=== PATIENT | female | born 1970 | race Caucasian/White ===

== ENCOUNTER → 2017-03-26 | Outpatient (CLI) | payer OTHER | LOC: FIMAGING 09:38 | PROVIDERS: ATTEND Family Medicine | DX: Z12.31 Encounter for screening mammogram for malignant neoplasm of breast (principal) | CPT/HCPCS: G0202 ==

== ENCOUNTER → 2018-04-08 | Outpatient (CLI) | payer OTHER | LOC: FIMAGING 09:54 | PROVIDERS: ATTEND Family Medicine | DX: Z12.31 Encounter for screening mammogram for malignant neoplasm of breast (principal) ==

== ENCOUNTER 2019-02-18 12:42 | Inpatient (IN) | payer OTHER ==
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
[2019-02-18] MEDS ORDERED: fentaNYL 100 MCG/2 ML INJ IVP ONE (13:03)
[2019-02-18] MEDS ORDERED: ONDANSETRON 4 MG/2 ML VIAL IVP ONE (13:03)
[2019-02-18] MEDS ORDERED: NS 1,000 ML IV ONE (13:04)
[2019-02-18 14:32] LABS: INR 1.06 (0.83-1.16); PROTIME(PATIENT) 13.4 SEC (12.0-15.0)
[2019-02-18] MEDS ORDERED: PROMETHAZINE HCL 25 MG/ML INJ IVP ONE (14:48)
[2019-02-18 15:27] LABS: PLATELET COUNT 201 10^3/uL (150-400)
[2019-02-18] MEDS ORDERED: oxyCODONE IR 5 MG TAB PO PRN (16:19)
[2019-02-18] MEDS ORDERED: ONDANSETRON 4 MG/2 ML VIAL IVP PRN (16:19)
[2019-02-18] MEDS ORDERED: HYDROmorphONE/DILAUDID 1 MG/ML INJ IVP PRN (16:19)
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
[2019-02-18] MEDS: ACETAMINOPHEN 325 MG TAB PO PRN (18:25)
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
--- NOTE | 2019-02-18 19:40 | CPEKG ---
Test Reason : OPEN Blood Pressure : / mmHG Vent. Rate : 072 BPM Atrial Rate : 073 BPM P-R Int : 204 ms QRS Dur : 088 ms QT Int : 454 ms P-R-T Axes : 073 085 054 degrees QTc Int : 497 ms Sinus rhythm Borderline prolonged NC interval Borderline prolonged QT interval Confirmed by Theresa Hyatt ([id number]) on 02/18/2019 7:40:16 PM Referred By: THERESA HYATT Confirmed By:Theresa Hyatt
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
[2019-02-18] MEDS: IBUPROFEN 600 MG TAB PO SCH (23:31)
[2019-02-18] MEDS: BACITRACIN ZINC 0.5 OZ OINTTUBE TP SCH (23:31)
[2019-02-19] MEDS: BACITRACIN ZINC 0.5 OZ OINTTUBE TP SCH ×2 (01:24→08:58)
[2019-02-19] MEDS: IBUPROFEN 600 MG TAB PO SCH ×3 (01:32→08:59)
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
[2019-02-19] MEDS ORDERED: REGADENOSON 0.4 MG/5 ML SYR IVP ONE (08:52)
[2019-02-19] MEDS ORDERED: CETIRIZINE 10 MG TAB PO SCH (09:00)
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
--- NOTE | 2019-02-19 10:57 | PDCARST ---
CAR Stress Test Results Type of Stress Test: Lexiscan stress test Indication: syncope Description of Procedure: After informed consent was obtained, pt was established to ECG, blood pressure, HR and oximetry monitoring. STRESS EKG AND HEMODYNAMIC DATA. Resting heart rate: 63 BPM. Resting ECG: SR. Resting blood pressure: 104/62 mmHg. O2 saturation at rest: 93%. Peak heart rate: 89 BPM. Peak blood pressure: 98/56 mmHg. Arrhythmias: none. Symptoms: The patient experienced no typical symptoms of angina during stress or recovery. Stress/Infusion ECG: No change in rhythm with no significant ST/T wave changes. Stress/infusion O2 saturation: 97% Impression: Uneventful Lexiscan infusion. Conclusion: Await nuclear images.
[2019-02-19 11:34] VITALS: BP 111/77
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
[2019-02-19] MEDS: ACETAMINOPHEN 325 MG TAB PO PRN (15:20)
--- NOTE | 2019-02-19 18:37 | ECHO ---
[email or web address] [address] [address] Main: [phone] Echocardiography Examination Transthoracic Name: POPPY NIEVES MR#: [id number] Study Date: 02/19/2019 Study Time: 08:02 AM Date of : 1970 Age: 48 year(s) Height: 167.6 cm (66 in.) Weight: 61.24 kg (135 lb.) BSA: 1.69 m2 Gender: Female Examination: Echo Contrast: Image Quality: Adequate Rhythm: Heart Rate: BP: 108 mmHg/63 mmHg Indication: ?syncope Procedure Staff Referring Physician: Wallcovering Texturer: Naomi Sams [facility] Reading Physician: Dalton Vega MD Requesting Provider: Indication: ?syncope Measurements Chambers AV/MV Label Value Normal Value Label Value Normal Value LVOT Vmax 0.91 m/s (0.7m/s - 1.1m/s) AV PGmax 7 mmHg LVOTd 2 cm (1.8cm - 2cm) AV PGmean 5 mmHg LVOT VTI 21.1 cm (18cm - 22cm) AV Vmax 1.31 m/s LVDd, 2D 4.5 cm (3.9cm - 5.3cm) ELISABETH (Vmax) 2.2 cm2 LVDs, 2D 2.7 cm (2.1cm - 4cm) ELISABETH (VTI) 2.2 cm2 IVSd, 2D 0.9 cm (0.6cm - 1.1cm) MV E Vmax 0.76 m/s LVPWd, 2D 0.8 cm MV A Vmax 0.45 m/s LVEF, BP 57 % (55% - 70%) MV E/A 1.69 LVEF, 2D 70 % (54% - 74%) MV E/E' lateral 6.7 LVOT PGmean 2 mmHg MV E/E' septal 8.1 (0.5 - 1.7) LVOT Vmean 0.71 m/s MV DT 243 ms RVDd, 2D 1.9 cm (1.9cm - 3.8cm) MV E' septal 0.09 m/s LA Volume, BP 22 ml (22ml - 52ml) MV PHT 0.07 s LADs, 2D 2.8 cm (2.7cm - 3.8cm) MVA PHT 3 cm2 LAESV index, BP 13 ml/m2 MV E' lateral 0.11 m/s RA Area 10.4 cm2 MV E/E' mean 7.6 Additional Vessels MV PHT 73 ms Label Value Normal Value MV E' mean 0.1 m/s AoAsc 2.8 cm TV/PV AoRoot, 2D 2.7 cm (1.4cm - 2.6cm) Label Value Normal Value Patient: POPPY NIEVES Study Date: 02/19/2019 Page 1 of 3 08:02 AM IVC 2.2 cm (1.2cm - 2.3cm) RA Pressure 5 mmHg PV PGmax 4 mmHg PV Vmax, Caliper 0.99 m/s (0.6m/s - 0.9m/s) Conclusions Left Ventricle: Left ventricle is normal in size. EF range is estimated at 55 % - 60 %. Left ventricular diastolic function parameters are normal. No LV hypertrophy. Right Ventricle: Right ventricular systolic function is normal. Left Atrium: The left atrium is normal in size. Right Atrium: The right atrium is normal in size. Pericardium: No pericardial effusion. Findings Left Ventricle: Left ventricle is normal in size. Normal global systolic left ventricular function. The ejection fraction, measured by Simpsons method, is 57 %. EF range is estimated at 55 % - 60 %. Left ventricle wall thickness is normal. There are no regional wall motion abnormalities. Left ventricular diastolic function parameters are normal. No LV hypertrophy. Right Ventricle: Normal size right ventricle. Right ventricular systolic function is normal. Left Atrium: The left atrium is normal in size. Right Atrium: The right atrium is normal in size. Mitral Valve: Mitral valve appears structurally normal. Mild mitral regurgitation. No mitral valve stenosis. Aortic Valve: Aortic leaflets are structurally normal. Trivial aortic regurgitation is present. There is no aortic stenosis. Tricuspid Valve: Tricuspid valve leaflets are structurally normal. Trivial tricuspid regurgitation. No tricuspid valve stenosis. Pulmonary artery pressure cannot be assessed due to inadequate TR signal. Pulmonic Valve: Pulmonic leaflets are structurally normal. No significant pulmonic valve regurgitation is evident. Aorta: The aortic root size in 2D measures 2.7 cm. The ascending aorta measures 2.8 cm. Aorta Measurements AoRoot, 2D is 2.7 cm. IVC: The inferior vena cava is normal in size. Pericardium: No pericardial effusion. No pleural effusion present. Patient: POPPY NIEVES Study Date: 02/19/2019 Page 2 of 3 08:02 AM Exam Details Procedure Ordered: Echo Procedure Status: Routine study Image Quality: Adequate Facility Location: Bedside (No Signature Object) Patient: POPPY NIEVES Study Date: 02/19/2019 Page 3 of 3 08:02 AM [id number]
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
--- NOTE | 2019-02-20 15:14 | CPEKG ---
Test Reason : OPEN Blood Pressure : / mmHG Vent. Rate : 063 BPM Atrial Rate : 063 BPM P-R Int : 182 ms QRS Dur : 078 ms QT Int : 425 ms P-R-T Axes : 028 059 048 degrees QTc Int : 436 ms Sinus rhythm Confirmed by Bhakti Ramey ([id number]) on 02/20/2019 3:14:22 PM Referred By: Toño Harden Confirmed By:Bhakti Ramey
== END 2019-02-19 15:40 | disposition home or self-care (01) | DRG 312 ==
LOC: EDUNIT# → F2N 17:21
PROVIDERS: ADMIT Surgery; ATTEND Surgery
PROC: 0CQ1XZZ Repair Lower Lip, External Approach (ICD-10-PCS; principal; 2019-02-18)
DX: R55 Syncope and collapse (principal); I61.0 Nontraumatic intracerebral hemorrhage in hemisphere, subcortical; S01.511A Laceration without foreign body of lip, initial encounter; S02.5XXA Fracture of tooth (traumatic), initial encounter for closed fracture; Y93.55 Activity, bike riding; Y92.214 College as the place of occurrence of the external cause; V18.0XXA Pedal cycle driver injured in noncollision transport accident in nontraffic accident, initial encounter
CPT/HCPCS: 84484-ER; 92523-GN; 96374; 97161-GP; 97165-GO; A9500; J2405; J2550; J2785; J3010

== ENCOUNTER → 2019-04-09 | Outpatient (CLI) | payer OTHER | LOC: FIMAGING 09:03 ==